=== PATIENT | male | born 1945 | race Caucasian/White ===

== ENCOUNTER → 2020-06-22 09:28 | Outpatient (CLI) | payer MEDICARE, BC, SELFPAY ==
[2020-06-23 09:27] LABS: COVID19 Sendout Not Detected (Not Detect)
== END ==
PROVIDERS: PCP Family Medicine; Visit Provider Physician Assistant
DX: Z11.59 Encounter for screening for other viral diseases (principal)
CPT/HCPCS: 87635

== ENCOUNTER 2020-06-25 13:25 | Day surgery (SDC) | payer MEDICARE, BC, SELFPAY ==
--- NOTE | 2020-06-25 12:11 | P.HP_ITS ---
History of Present Illness History of Present Illness Date Patient Seen: 06/25/[address]: [facility] Narrative: 74 Years Old Male seen today for consideration of a screening colonoscopy. Has had one previous lifetime colonoscopy in 2007, significant for diverticulosis and hemorrhoids. There have been no lower GI symptoms suggesting disease such as change in bowel habits, bleeding, abdominal pain or anemia. There's been no family history of colon cancer or colon polyps. Overall health issues have been stable, including no major cardiac events for at least 6 weeks. He is on Coumadin for atrial fibrillation, last INR on 11/13/2018 was 2.5. INR today is 1.0 after being off coumadin x 5 days. He has 2 repaired valves, mitral and aortic, 2016. Recently had a lithotripsy and was off Coumadin for 2 weeks without bridging per cardiology. Current Medications (verified): 1) Glipizide 5 Mg Oral Tablet (Glipizide) .... Take one tablet twice daily before breakfast and dinner for diabetes. 2) Metformin Hcl 500 Mg Oral Tablet (Metformin Hcl) .... Take two in the morning and two in the evening 3) Coumadin 5 Mg Oral Tablet (Warfarin Sodium) .... Take 2 tablets by mouth three times a week, and 1 1/2 the other 4days a week for anticoagulation. Anticoagulant. 4) Metoprolol Succinate Er 25 Mg Oral Tablet Extended Release 24 Hour (Metoprolol Succinate) .... Take one by mouth every day 5) Diltiazem Hcl Er 120 Mg Oral Capsule Extended Release 12 Hour (Diltiazem Hcl) .... Take one by mouth every day Allergies (verified): No Known Drug Allergies Preventive Care Screening Last Flu Shot: Date: 12/08/2019 Results: Historical Flu Quadrivalent Past Medical History: Kidney Stone Hepatic cyst Renal colic DIABETES MELLITUS, TYPE II ATRIAL FIBRILLATION Valve replacement HYPERTENSION ERECTILE DYSFUNCTION ATRIAL FLUTTER HEARING AID HAY FEVER Diverticulosis Hemorrhoids Past Surgical History: Back surgery x 2 Valve repair, mitral and aortic, 2016, Dr. [place] ([place]) Pacemaker placement Lithotripsy Colonoscopy Family History: Father: cancer Mother: Stroke, Diabetes Siblings: Social History: Reviewed history from 08/29/2014 and no changes required: Marital Status: - Theodora (1947) - Retired Occupation: Retired Education: 14 years Alcohol drinks/day: 3/week Caffeine use/day: 0 Exercise Times per Week: 0 Guns in home: yes Dental Care w/in 6 mos.: yes Drug Use: never HIV High Risk Behavior: no Patient History Medical History (Updated 06/25/20 @ 14:08 by Vicky Newton RN) Afib (Acute) Diabetes mellitus, type II (Acute) Erectile dysfunction (Acute) FH: mitral valve repair (Acute) Hay fever (Acute) Hepatic cyst (Acute) History of atrial flutter (Acute) Hypertension (Acute) Kidney stone (Acute) Renal colic (Acute) Wears hearing aid in both ears (Acute) Surgical History (Updated 06/25/20 @ 14:08 by Vicky Newton RN) Aortic valve replaced (Acute) H/O aortic valve repair (Acute) H/O lithotripsy (Acute) History of back surgery (Acute) Meds Home Medications and Allergies Home Medications Medication Instructions Recorded Confirmed Type Metformin Hydrochloride (METFORMIN 500 mg PO BID #0 08/07/11 06/25/20 History ER) carvedilol [Coreg] 25 mg PO BID #0 08/07/11 06/25/20 History lisinopril [Zestril] 5 mg PO DAILY #0 08/07/11 06/25/20 History warfarin [Coumadin] 7.5 mg PO QDAY #0 08/07/11 06/25/20 History diltiazem HCl 120 mg PO DAILY 06/25/20 06/25/20 History glipizide 5 mg PO BID 06/25/20 06/25/20 History Allergies Allergy/AdvReac Type Severity Reaction Status Date / Time No Known Drug Allergies Allergy Verified 06/25/20 14:06 Review of Systems Review of Systems ROS: Yes All systems reviewed with the patient and are negative except as otherwise documented Exam Narrative Exam Narrative: GENERAL: Alert and oriented, appearing stated age and in no acute distress. HEENT: Head normocephalic/atraumatic. Pupils equal, round, and reactive to light and accomodation. Extraocular muscles intact. Tympanic membranes clear. Nasal mucosa moist, septum midline. Oral mucosa moist, no lesions. Neck soft and supple, no lymphadenopathy. LUNGS: Clear to ausculation bilaterally, no wheezes, rhonchi or rales. CV: Normal S1 and S2 with regular rate and rhythm, no audible murmurs, rubs or gallops. ABDOMEN: Soft, non-tender, non-distended, no organomegaly. Positive bowel sounds. EXTREMITIES: No clubbing, cyanosis, or edema. NEURO: Cranial nerves II through XII grossly intact, no focal deficits. PSYCH: Alert and oriented x 3. SKIN: No concerning lesions. Assessment & Plan Assessment & Plan narrative: 1. Screening for colon cancer Plan for colonoscopy. The nature and character of the procedure as well as anticipated results were discussed. The possibility of not completing the procedure was also discussed. Possible complications including aspiration pneumonia, bleeding, perforation and reaction to medications either for sedation or preparation and missed lesions were discussed. Questions were answered and proceeding to the colonoscopy was elected. Informed consent signed. 2. Atrial fibrillation Per cardiology, patient stopped Coumadin 5 days prior to the procedure, INR 1.0 today. Cardiology recommended restarting warfarin the same evening as a procedure if bleeding risk is low. I sincerely appreciate the referral allowing me to participate in this patient's care. Please contact me with any questions or concerns.
--- NOTE | 2020-06-25 12:19 | PM.OP.ENDO ---
Operative Date/Time/Diagnoses Date of procedure: 06/25/20 Procedure Notes SCOAP/Timeout: 2:28 p.m. Procedure in detail: ENDOSCOPIST: Evelyn Davenport MD Sedation RN: Erik Vaca RN Sedation start time: 2:29 p.m. Sedation end time: 2:43 p.m. PROCEDURE: Colonoscopy INDICATIONS: 1. Screening for colon cancer MEDICATION: Levsin 0.125 mg sublingual, incremental doses of Versed and fentanyl until appropriate level sedation achieved. ASA CLASS: 2 CECAL WITHDRAWAL TIME: 6 minutes COMPLICATIONS: None. EXTENT OF PROCEDURE: Cecum. QUALITY OF PREP: Good with portions of liquid stool. PROCEDURE: Prior to insertion of the colonoscope, a digital rectal examination was accomplished with circumferential palpation of the distal rectal mucosa without significant findings being noted. The high-definition colonoscope was passed into the rectum in the usual fashion and advanced over to the cecum without difficulty. The ileocecal valve, appendiceal stoma, and medial wall all could be inspected and no abnormalities were seen. ASCENDING COLON: As the colonoscope was withdrawn, care was taken to expose and inspect the haustral folds and no abnormalities were seen. HEPATIC FLEXURE: Normal, no polyps, diverticula or other abnormalities. TRANSVERSE COLON: Normal, no polyps, diverticula or other abnormalities. DESCENDING COLON: Normal, no polyps, diverticula or other abnormalities. SIGMOID COLON: Normal, no polyps, diverticula or other abnormalities. RECTUM: Normal. J maneuver was produced. There was no significant perianal disease. The J maneuver was broken. The remainder of the rectum was inspected and there was [] no external hemorrhoid disease. The scope was withdrawn. IMPRESSION: 1. Normal colonoscopy PLAN: 1. This can be patient's last lifetime colonoscopy. The possibility of a missed lesion including a malignancy has been discussed with the patient previously. Potential alarm symptoms have been discussed and should be reported immediately. Post-procedure Follow up: as needed Disposition: PACU
[2020-06-25] MEDS: LACTATED RINGERS 1,000 ML 200 ML IV (13:49)
[2020-06-25] MEDS: HYOSCYAMINE 0.125 MG TABLET PO (13:49)
[2020-06-25 13:58] VITALS: BMI 27.0
[2020-06-25 14:12] VITALS: BP 154/85; PULSE 16; RESP 77; TEMP 36.2; O2SAT 98
[2020-06-25] MEDS: fentaNYL 250 MCG/5 ML INJ IV (14:29)
[2020-06-25] MEDS: MIDAZOLAM 5 MG/5 ML VIAL IV (14:29)
[2020-06-25 14:49] VITALS: BP 122/65; PULSE 58; RESP 8; TEMP 36.3; O2SAT 97
[2020-06-25 14:54] VITALS: BP 99/55; PULSE 57; RESP 10; O2SAT 96
[2020-06-25 14:59] VITALS: BP 93/53; PULSE 56; RESP 8; O2SAT 95
[2020-06-25 15:19] VITALS: BP 96/57; PULSE 57; RESP 8; O2SAT 94
[2020-06-25 15:35] VITALS: BP 121/76; PULSE 58; RESP 16; TEMP 36.4; O2SAT 97
--- NOTE | 2020-06-25 16:02 | SUR.PHASEII ---
spoke with Dr Davenport, [facility] [place]. If closed on thursday, ok per Dr Davenport to get test on thursday. pt and aware.
== END 2020-06-25 15:42 | disposition home or self-care (01) ==
PROVIDERS: PCP Family Medicine; Referring Provider Student in an Organized Health Care Education/Training Program; Visit Provider Student in an Organized Health Care Education/Training Program
PROC: 0DJD8ZZ Inspection of Lower Intestinal Tract, Via Natural or Artificial Opening Endoscopic (ICD-10-PCS; CPT 45378; principal; 2020-06-25 14:30)
DX: Z12.11 Encounter for screening for malignant neoplasm of colon (principal)
CPT/HCPCS: G0121; J2250; J3010

== ENCOUNTER → 2022-12-09 09:38 | Outpatient (CLI) | payer MEDICARE, BC, SELFPAY ==
--- NOTE | 2022-12-25 17:18 | DIAB.MNT ---
Initial Diabetes Medical Nutrition Therapy Assessment Name: Owen Matute Date: 12/09/22 Time: 10 Dx: Type II Diabetes Provider: Kourtney Owen presents today for initial DM visit. States he has had DM for 10-12 years. +FH of DM with mother, possibly sister. States he previously did not take his DM seriously, did not change diet, did not check BG due to not understanding what BG should be. States his mother lived with DM into her 90s however passed from a foot infection that resulted in amputation and stopped eating. States loves candy, which has been a barrier for him in the past. Has tried to reduce sugar more recently. Now he avoids candy and sweet breads. Diet Recall: 7a: coffee with cream, bagel with cream cheese or butter OR eng muffin with PB OR 4oz OJ with roast beef hash and egg 1130a-12p: sour dough (does not like ww) sandwich with PB or ham/cheese OR fast food burger with small fries OR can of soup 230p: half PB sandwich or PB or cheese with crackers 6p: steak and half potato OR 2c pasta with meat sauce and bread OR eats out OR fish, veggies and 0.5-1c rice Beverages: water 16-24oz, coffee x 1c, wine 2-3x per week x 1 serving Eating out: dinner 2-3x per week Anthropometrics: Ht: 68 Wt: 160# reported Physical Activity: walks inconsistently per report. In Nov tried to restart walking and felt exhaustion. Self-Monitoring Blood Glucose: None Diabetes Medications: Metformin 1000mg BID Glipizide 5mg BID Pertinent Labs: HgA1c 7.8% 09/2022 Past Medical History: (Last Updated 06/25/20 @ 14:08 by Vicky Newton RN) Afib Diabetes mellitus, type II Erectile dysfunction FH: mitral valve repair Hay fever Hepatic cyst History of atrial flutter Hypertension Kidney stone Renal colic Wears hearing aid in both ears Nutrition Rx: REE: 1450 kcals Carbohydrates: Meal:45g Snack:15-30g Nutrition Diagnosis: - Food and nutrition related knowledge deficit r/t limited nutrition therapy aeb pt report and diet recall - Excessive CHO intake r/t knowledge deficit aeb diet recall indicating >60g CHO at some meals - Self monitoring deficit r/t no SMBG supplies aeb pt report - Physical inactivity r/t stage of change and feeling exhaustion with walks aeb pt report Intervention: This participant was very receptive. Provided appropriate educational handouts. Discussed the following topics: Completed intake assessment. Discussed barriers to care. Importance of self-monitoring, how often, and when to check. Suggested checking at different times to evaluate meals Plate Method, impact of macronutrients on blood sugar, meal timing, pairing macronutrients and spreading out carbohydrates for better blood glucose management Recommended servings for carbohydrates at meals and snacks [facility] nutrition Eating out Role of physical activity and following guidelines for safety Created SMART goals for patient self-care and success. 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
== END ==
PROVIDERS: PCP Family Medicine; Referring Provider Family Medicine; Visit Provider Family Medicine
DX: E11.9 Type 2 diabetes mellitus without complications (principal); Z71.3 Dietary counseling and surveillance; Z79.84 Long term (current) use of oral hypoglycemic drugs
CPT/HCPCS: 97802

== ENCOUNTER → 2023-01-06 09:58 | Outpatient (CLI) | payer MEDICARE, BC, SELFPAY ==
--- NOTE | 2023-01-07 11:37 | DIAB.FU ---
Diabetes Education Class Series: Diabetes and Nutrition Name:Owen Matute Date: 01/06/23 Time: 10a-12p Owen presents to class 1 of 3 for DSME. Today has questions regarding butter consumption and impact on health/DM. Also had some questions regarding CHO counting. Class topics covered: ? Discuss macronutrient pairing, Plate Method, and carb counting ? Review general recommendations for carbohydrates ? Practice label reading ? Discuss the role of fiber in diabetes and provide examples of sources ? Review heart health nutrition: fats, fiber, and sodium ? Determine recommendations for grocery shopping and eating out ? Discuss alcohol recommendations ? Review the role of substitute sugars in diabetes management ? Set SMART goals Goal Set: Eat veggies 4 x per week Walk 15 min4 x per week Follow-up: Diabetes Physiology and Medication Class in one week Steph Branch RDN, [facility] Registered Dietitian, Certified Diabetes Care and Glove Cleaner [phone] [email or web address]
== END ==
PROVIDERS: PCP Family Medicine; Referring Provider Family Medicine; Visit Provider Family Medicine
DX: E11.9 Type 2 diabetes mellitus without complications (principal); Z71.3 Dietary counseling and surveillance; Z79.84 Long term (current) use of oral hypoglycemic drugs
CPT/HCPCS: G0109

== ENCOUNTER → 2023-01-13 09:21 | Outpatient (CLI) | payer MEDICARE, BC, SELFPAY ==
--- NOTE | 2023-01-16 11:28 | DIAB.FU ---
Diabetes Education Class Series: Diabetes Physiology and Medications Name: Owen Matute Date: 01/13/23 Time: 940a-12p Owen presents for class 2 of 3 for DSME. States he has been adding veggies 4x per week successfully. Also started walking 15 m 4x per week. Class topics covered: ? Diabetes pathophysiology ? Discuss different types of diabetes ? Review criteria for diagnosing diabetes ? Review HgA1c measurement and associated blood sugars ? Review blood sugar monitoring safety, technique, and goals ? Discuss ways to reduce complications associated with diabetes, includes microvascular and macrovascular complications ? Review diabetes medications types, action, and side effects ? Health care visits recommended for people with T2DM ? Immunization recommended for people with T2DM ? SMART goals review Goal Set: walk 4x per week Follow-up: Diabetes Lifestyle and Ongoing Support Class next week Steph Branch RDN, [facility] Registered Dietitian, Certified Diabetes Care and Legal Receptionist [phone] [email or web address]
== END ==
PROVIDERS: PCP Family Medicine; Referring Provider Family Medicine; Visit Provider Family Medicine
DX: E11.9 Type 2 diabetes mellitus without complications (principal); Z71.3 Dietary counseling and surveillance
CPT/HCPCS: G0109

== ENCOUNTER → 2023-01-20 09:22 | Outpatient (CLI) | payer MEDICARE, BC, SELFPAY ==
--- NOTE | 2023-02-13 10:26 | DIAB.FU ---
Diabetes Education Class Series: Diabetes Lifestyle Change and Ongoing Support Name: Owen Matute Date: 01/20/23 Time: [id number] Zacarias reports avoiding sweets and overall working on diet. Still working on exercise program. Class topics covered: ? Discuss the difference between physical activity and exercise ? Determine physical activity benefits and impact on diabetes ? Review physical activity recommendations and safety ? Discuss emergency preparedness ? Discuss diabetes and emotions (diabetes burnout/distress) ? Review and practice stress management techniques ? Review support groups and community resources ? Discuss the role of family support in diabetes care ? What is going well? Challenges of diabetes? ? Set SMART goals Follow-up: 1:1 visit follow-up Steph Branch RDN, [facility] Registered Dietitian, Certified Diabetes Care and Small Business Representative [phone] [email or web address]
== END ==
PROVIDERS: PCP Family Medicine; Referring Provider Family Medicine; Visit Provider Family Medicine
DX: E11.9 Type 2 diabetes mellitus without complications (principal); Z71.3 Dietary counseling and surveillance
CPT/HCPCS: G0108

== ENCOUNTER → 2023-03-24 10:01 | Outpatient (CLI) | payer MEDICARE, BC, SELFPAY ==
--- NOTE | 2023-04-15 10:02 | DIAB.MNTFU ---
Follow-up Diabetes Medical Nutrition Therapy Assessment Name: Owen Matute Date: 03/24/23 Time: 10:10-1030am Dx: Type II Diabetes Provider: Kourtney Weaver presents for DM follow-up. Reports slight reduction in HgA1c to 8% down from 8.3%. Endorses diet changes, though still having some meals with excessive CHO intake. Has cut out sweet rolls and muffins. Stage of change seems to be a barrier. States his mother had DM without complication. Denies symptoms of DM, which seems to support his feeling of minimal concern. Has attended DM classes. Does not desire continued follow-up. Diet Recall: B: coffee, bagel with cream cheese or butter or PB OR japanese muffin +/- 4oz OJ Sn: nothing or leftovers L: sandwich with PB or meat OR leftovers sn: half sandwich OR crackers with PB or butter D: 2c pasta with meat sauce OR ham and potatoes OR raviolis Beverages: water, 4oz oj Anthropometrics: Ht: 68 Wt: 160# reported at initial visit; no recent wt Physical Activity: walks a little more consistently 3x per week for 1 mi. Self-Monitoring Blood Glucose: None Diabetes Medications: Metformin 1000mg BID Glipizide 5mg BID Pertinent Labs: HgA1c 7.8% 09/2022; reports 8% recent HgA1c Past Medical History: (Last Updated 06/25/20 @ 14:08 by Vicky Newton RN) Afib Diabetes mellitus, type II Erectile dysfunction FH: mitral valve repair Hay fever Hepatic cyst History of atrial flutter Hypertension Kidney stone Renal colic Wears hearing aid in both ears Nutrition Rx: REE: 1450 kcals Carbohydrates: Meal:45g Snack:15-30g Nutrition Diagnosis: - Food and nutrition related knowledge deficit r/t limited nutrition therapy aeb pt report and diet recall- improved - Excessive CHO intake r/t knowledge deficit aeb diet recall indicating >60g CHO at some meals- continued - Self monitoring deficit r/t no SMBG supplies aeb pt report- continued - Physical inactivity r/t stage of change and feeling exhaustion with walks aeb pt report - improved Intervention: This participant was very receptive. Provided appropriate educational handouts. Discussed the following topics: Diet changes he has implemented Stage of change barrier HgA1c goal and rationale Brief nutrition review Importance of SMBG, at least getting some FBG BG goals per ADA Physical activity plan and progress Created SMART goals for patient self-care and success. Goals: Start checking BG- not met Be mindful of CHO at dinner- improved walk 5-10 minutes or more and track on calendar- improved Cut veggies up for lunch- not met Increase water intake - in progress Check FBG consistently- new Follow-up: RACIEL BAILEY follow-up recommended but he would like to follow-up prn. Provided my contact info for questions or additional follow-up needs. Steph Bracnh RDN, [facility] Certified Diabetes Care and Airline Pilot Flight Instructor P: [phone] Thank you for this referral
== END ==
PROVIDERS: PCP Family Medicine; Referring Provider Family Medicine; Visit Provider Family Medicine
DX: E11.9 Type 2 diabetes mellitus without complications (principal); Z79.84 Long term (current) use of oral hypoglycemic drugs; Z71.3 Dietary counseling and surveillance
CPT/HCPCS: 97803

== ENCOUNTER → 2023-11-11 16:17 | Outpatient (CLI) | payer MEDICARE, BC, SELFPAY ==
--- NOTE | 2023-11-11 | DI.RAD.S_ITS ---
PROCEDURE: XR CHEST 2V INDICATIONS: ACUTE COUGH TECHNIQUE: 2 views of the chest were acquired. COMPARISON: None. FINDINGS: Surgical changes and devices: Left chest pacemaker present. Medial sternotomy wires are present. Similar shaped surgical material projects over the heart. Lungs and pleura: Lungs are clear. No pleural effusions or pneumothorax. Mediastinum: Mediastinal contours are normal. Heart size is normal. Bones and chest wall: Suggestion of osteopenia. IMPRESSION: No acute cardiopulmonary abnormality seen. Dictated by: Jt Olvera M.D. on 11/11/2023 at 17:55 Approved by: Jt Olvera M.D. on 11/11/2023 at 17:57
== END ==
PROVIDERS: PCP Family Medicine; Referring Provider Family Medicine; Visit Provider Family Medicine
DX: R05.1 Acute cough (principal)
CPT/HCPCS: 71046